=== PATIENT | female | born 1985 | race Asian ===

== ENCOUNTER 2024-08-08 06:24 | Emergency (ER) | payer BC ==
[~2024-08-08] VITALS: Ht 152.4 cm; Wt 66.2 kg
[2024-08-08 07:11] LABS: APPEARANCE,URINE CLEAR (CLEAR); BILIRUBIN,URINE NEGATIVE (NEGATIVE); BLOOD, URINE NEGATIVE Ery/uL (NEGATIVE); COLOR,URINE YELLOW (YELLOW); KETONES,URINE NEGATIVE (NEGATIVE); LEUKOCYTE ESTERASE ,URINE NEGATIVE (NEGATIVE); NITRITE, URINE NEGATIVE (NEGATIVE); PREGNANCY TEST URINE QUAL NEGATIVE (NEGATIVE); PROTEIN,URINE NEGATIVE (NEGATIVE); UGLUCOSE NEGATIVE (NEGATIVE); UROBILINOGEN,URINE 0.2 EU/dL (0.2)
[2024-08-08 07:45] VITALS: BP 124/85; TEMP 98.5; O2SAT 98
== END 2024-08-08 07:51 | disposition home or self-care (01) ==
LOC: ER 06:27
DX: R30.0 Dysuria (principal); G89.18 Other acute postprocedural pain; K59.00 Constipation, unspecified; Z88.1 Allergy status to other antibiotic agents
CPT/HCPCS: 84703-TC